=== PATIENT | female | born 1975 | race African-American/Black ===

== ENCOUNTER 2017-07-03 04:35 | Emergency (ER) | payer SELFPAY ==
[2017-07-03 04:49] VITALS: BP 161/91; PULSE 112; RESP 16; TEMP 98; O2SAT 99
[2017-07-03 05:00] VITALS: PULSE 114; RESP 16; O2SAT 100
[2017-07-03] MEDS ORDERED: SODIUM CHLOR 0.9% 1000 ML INJ 1,000 ML IV ONE ×2 (05:00→06:15)
[2017-07-03] MEDS ORDERED: SODIUM CHLORIDE 0.9% FLUSH 10 ML FLUSH IV FLUSH PRN (05:00)
[2017-07-03 05:30] LABS: AUTOMATED NEUTROPHIL # 9.4 TH/MM3 (1.8-7.7); BASOPHIL % 0.3 % (0.0-2.0); EOSINOPHIL # 0.1 TH/MM3 (0-0.4); EOSINOPHIL % 0.5 % (0.0-4.0); HEMATOCRIT 33.5 % (35.0-46.0); HEMOGLOBIN 10.3 GM/DL (11.6-15.3); LYMPH % 33.3 % (9.0-44.0); LYMPHOCYTE # 5.4 TH/MM3 (1.0-4.8); MEAN CELL VOLUME 71.6 FL (80.0-100.0); MEAN CORPUSCULAR HEMOGLOBIN 22.1 PG (27.0-34.0); MEAN CORPUSCULAR HGB CONC 30.8 % (32.0-36.0); MEAN PLATELET VOLUME 7.1 FL (7.0-11.0); MONOCYTE # 1.3 TH/MM3 (0-0.9); NEUT % 57.9 % (16.0-70.0); PLATELET COUNT 413 TH/MM3 (150-450); RED BLOOD COUNT 4.68 MIL/MM3 (4.00-5.30); RED CELL DISTRIBUTION WIDTH 20.8 % (11.6-17.2); WHITE BLOOD COUNT 16.2 TH/MM3 (4.0-11.0)
--- NOTE | 2017-07-03 05:36 | PD ---
HPI Chief Complaint: Allergic/Adverse Reaction Time Seen by Provider: 04:56 Travel History International Travel<30 days: No Contact w/Intl Traveler<30days: No Traveled to known affect area: No History of Present Illness HPI 41-year-old female brought in by ambulance for evaluation of left face, cheek, and tongue swelling. The patient reported to EMS that she has had similar symptoms one time in the past and was told that she had angioedema. Her symptoms woke her up from sleep this morning. EMS provided 0.3 mg of IM epinephrine, 125 mg of IV Solu-Medrol, and 25 mg of IV Benadryl prior to arrival. On arrival the patient is awake and alert. She states she is nervous. She is complaining of pain to her left face. She feels short of breath, but believes that this may be from anxiety. She does not feel that her throat is closing. She is able to swallow and tolerate her secretions. She denies any new medications or any known new exposures. She reports similar symptoms when exposed to shellfish in the past. [facility] Past Medical History Medical History: Denies Significant Hx Immunizations Current: No ?: Not Past Surgical History Surgical History: No Previous Surgery Social History Alcohol Use: Yes Tobacco Use: No Substance Use: No Allergies-Medications (Allergen,Severity, Reaction): Coded Allergies: iodine (Verified Allergy, Unknown, 07/03/17) shellfish derived (Verified Allergy, Unknown, 07/03/17) Reported Meds & Prescriptions Reported Meds & Active Scripts Active No Active Prescriptions or Reported Medications Review of Systems Except as stated in HPI: all other systems reviewed are Neg Physical Exam Narrative GENERAL: Well-developed, well-nourished, awake, alert, appears anxious, no apparent distress. SKIN: Focused skin assessment warm/dry. HEAD: Atraumatic. Normocephalic. Mild left facial swelling. EYES: Pupils equal and round. No scleral icterus. No injection or drainage. ENT: Mucous membranes pink and moist. Poor dentition. Mild left face, left upper and lower lip swelling. No fluctuance or induration. No drooling or stridor. No trismus. Normal pharynx. Normal phonation. NECK: Trachea midline. No JVD. CARDIOVASCULAR: Regular rate and rhythm. RESPIRATORY: No accessory muscle use. Clear to auscultation. Breath sounds equal bilaterally. GASTROINTESTINAL: Abdomen soft, non-tender, nondistended. MUSCULOSKELETAL: No obvious deformities. No clubbing. No cyanosis. No edema. NEUROLOGICAL: Awake and alert. No obvious cranial nerve deficits. Motor grossly within normal limits. Normal speech. PSYCHIATRIC: Appropriate mood and affect; insight and judgment normal. Data Data Last Documented VS Vital Signs Date Time Temp Pulse Resp B/P (MAP) Pulse Ox O2 Delivery O2 Flow Rate FiO2 07/03/17 05:00 114 16 100 Nasal Cannula 4.00 07/03/17 04:49 98.0 161/91 (114) Orders Orders Complete Blood Count With Diff (07/03/17 04:56) Comprehensive Metabolic Panel (07/03/17 04:56) Prothrombin Time / Inr (Pt) (07/03/17 04:56) Act Partial Throm Time (Ptt) (07/03/17 04:56) Iv Access Insert/Monitor (07/03/17 04:56) Ecg Monitoring (07/03/17 04:56) Oximetry (07/03/17 04:56) Sodium Chloride 0.9% Flush (Ns Flush) (07/03/17 05:00) Ed Urine Pregnancytest Poc (07/03/17 04:56) Ct Soft Tiss Neck W/O Iv Cont (07/03/17 ) Sodium Chlor 0.9% 1000 Ml Inj (Ns 1000 M (07/03/17 05:00) Lorazepam Inj (Ativan Inj) (07/03/17 06:15) Sodium Chlor 0.9% 1000 Ml Inj (Ns 1000 M (07/03/17 06:15) Labs Laboratory Tests Test 07/03/17 05:10 White Blood Count 16.2 TH/MM3 Red Blood Count 4.68 MIL/MM3 Hemoglobin 10.3 GM/DL Hematocrit 33.5 % Mean Corpuscular Volume 71.6 FL Mean Corpuscular Hemoglobin 22.1 PG Mean Corpuscular Hemoglobin Concent 30.8 % Red Cell Distribution Width 20.8 % Platelet Count 413 TH/MM3 Mean Platelet Volume 7.1 FL Neutrophils (%) (Auto) 57.9 % Lymphocytes (%) (Auto) 33.3 % Monocytes (%) (Auto) 8.0 % Eosinophils (%) (Auto) 0.5 % Basophils (%) (Auto) 0.3 % Neutrophils # (Auto) 9.4 TH/MM3 Lymphocytes # (Auto) 5.4 TH/MM3 Monocytes # (Auto) 1.3 TH/MM3 Eosinophils # (Auto) 0.1 TH/MM3 Basophils # (Auto) 0.0 TH/MM3 CBC Comment AUTO DIFF Prothrombin Time 10.5 SEC Prothromb Time International Ratio 1.0 RATIO Activated Partial Thromboplast Time 24.1 SEC Blood Urea Nitrogen 3 MG/DL Creatinine 0.67 MG/DL Random Glucose 120 MG/DL Total Protein 8.7 GM/DL Albumin 3.3 GM/DL Calcium Level 8.4 MG/DL Alkaline Phosphatase 75 U/L Aspartate Amino Transf (AST/SGOT) 94 U/L Alanine Aminotransferase (ALT/SGPT) 88 U/L Total Bilirubin 0.2 MG/DL Sodium Level 138 MEQ/L Potassium Level 3.0 MEQ/L Chloride Level 107 MEQ/L Carbon Dioxide Level 18.0 MEQ/L Anion Gap 13 MEQ/L Estimat Glomerular Filtration Rate 96 ML/MIN [facility] Medical Decision Making Medical Screen Exam Complete: Yes Emergency Medical Condition: Yes Differential Diagnosis Dental infection, allergic reaction, angioedema Narrative Course Initial vital signs show heart rate 112, blood pressure 161/91, pulse ox 99% on room air, oral temperature 98F. CBC: WBC 16.2, hemoglobin 10.3, hematocrit 33.5, platelets 413. CMP is remarkable for potassium 3, bicarb 18, AST 94, ALT 88. Patient admits to drinking alcohol daily. She consumes about 3-6 beers daily. She denies illicit drug use. At approximately 7:00am at the end of my shift the patient was signed out to Dr Reese to follow up with CT soft tissue neck and dispo. Scripts No Active Prescriptions or Reported Meds Chong Coleman MD Jul 03, 2017 05:36
[2017-07-03 05:49] LABS: PROTHROMBIN TIME - PATIENT 10.5 SEC (9.8-11.6)
[2017-07-03 05:59] LABS: ALBUMIN 3.3 GM/DL (3.4-5.0); ALT (GPT) 88 U/L (10-53); AST (GOT) 94 U/L (15-37); BLOOD UREA NITROGEN 3 MG/DL (7-18); CALCIUM 8.4 MG/DL (8.5-10.1); CHLORIDE 107 MEQ/L (98-107); CREATININE 0.67 MG/DL (0.50-1.00); GLOMERULAR FILTRATION RATE 96 ML/MIN (>89); GLUCOSE,RANDOM 120 MG/DL (74-106); SODIUM (NA) 138 MEQ/L (136-145)
[2017-07-03 06:01] LABS: ALKALINE PHOSPHATASE 75 U/L (45-117); TOTAL BILIRUBIN ADULT 0.2 MG/DL (0.2-1.0); TOTAL PROTEIN 8.7 GM/DL (6.4-8.2)
[2017-07-03] MEDS ORDERED: LORazepam 2 MG/ML VIAL IV PUSH ONE (06:15)
--- NOTE | 2017-07-03 06:59 | RADRPT ---
EXAM DATE/TIME: 07/03/2017 06:39 [facility] COMPARISON: No previous studies available for comparison. INDICATIONS : Difficulty breathing. Possible airway edema. RADIATION DOSE: 23.09 CTDIvol (mGy) MEDICAL HISTORY : None SURGICAL HISTORY : None. ENCOUNTER: Initial ACUITY: 1 day PAIN SCORE: 5/10 LOCATION: neck TECHNIQUE: Volumetric scanning of the neck was performed. Using automated exposure control and adjustment of th e mA and/or kV according to patient size, radiation dose was kept as low as reasonably achievable to obtain optimal diagnostic quality images. DICOM format image data is available electronically for re view and comparison. FINDINGS: NASOPHARYNX: The nasopharyngeal airway has a normal configuration. No mucosal thickening or mass is seen. OROPHARYNX: The intrinsic muscles of the tongue are symmetric. The tonsillar pillars demonstrate prominence bila terally which focally mildly narrows the airway with the airway measuring 1.0 x 1.4 centimeters. Ther e is no evidence of abscess. No discrete mass.. The prevertebral soft tissues are not thickened. LARYNX: The supraglottic, glottic, and infraglottic structures are intact. PARAPHARYNGEAL: The parapharyngeal space is intact. SALIVARY GLANDS: The parotid and submandibular glands are intact. LYMPH NODES: No enlarged or necrotic-appearing nodes. THYROID: Homogeneous enhancement without evidence of nodule. BONES: Unremarkable. CONCLUSION: There is mild focal narrowing of the oropharyngeal airway secondary to bilateral tons illar hypertrophy. No evidence of abscess or mass. Katherin Nickerson MD on July 03, 2017 at 6:53 Board Certified Radiologist. This report was verified electronically.
[2017-07-03 07:09] LABS: LYMPHOCYTES 41 % (9-44); MONOCYTES 5 % (0-8); NEUTROPHIL # MANUAL DIFF 8.7 TH/MM3 (1.8-7.7); POLYS (SEG NEUTROPHILS) 54 % (16-70)
[2017-07-03 07:10] VITALS: BP 131/72; PULSE 108; RESP 16; TEMP 98.1; O2SAT 99
[2017-07-03 07:10] LABS: OVALOCYTES 1+ (NORMAL)
[2017-07-03] MEDS ORDERED: CLAR10CA3 PO (07:43)
[2017-07-03] MEDS ORDERED: PRED-503 PO (07:43)
[2017-07-03] MEDS ORDERED: AUGM875T3 PO (07:43)
--- NOTE | 2017-07-03 07:44 | PD ---
Data Data Last Documented VS Vital Signs Date Time Temp Pulse Resp B/P (MAP) Pulse Ox O2 Delivery O2 Flow Rate FiO2 07/03/17 07:10 98.1 108 16 131/72 (91) 99 Nasal Cannula 2.00 Orders Orders Complete Blood Count With Diff (07/03/17 04:56) Comprehensive Metabolic Panel (07/03/17 04:56) Prothrombin Time / Inr (Pt) (07/03/17 04:56) Act Partial Throm Time (Ptt) (07/03/17 04:56) Iv Access Insert/Monitor (07/03/17 04:56) Ecg Monitoring (07/03/17 04:56) Oximetry (07/03/17 04:56) Sodium Chloride 0.9% Flush (Ns Flush) (07/03/17 05:00) Ed Urine Pregnancytest Poc (07/03/17 04:56) Ct Soft Tiss Neck W/O Iv Cont (07/03/17 ) Sodium Chlor 0.9% 1000 Ml Inj (Ns 1000 M (07/03/17 05:00) Lorazepam Inj (Ativan Inj) (07/03/17 06:15) Sodium Chlor 0.9% 1000 Ml Inj (Ns 1000 M (07/03/17 06:15) Labs Laboratory Tests Test 07/03/17 05:10 White Blood Count 16.2 TH/MM3 Red Blood Count 4.68 MIL/MM3 Hemoglobin 10.3 GM/DL Hematocrit 33.5 % Mean Corpuscular Volume 71.6 FL Mean Corpuscular Hemoglobin 22.1 PG Mean Corpuscular Hemoglobin Concent 30.8 % Red Cell Distribution Width 20.8 % Platelet Count 413 TH/MM3 Mean Platelet Volume 7.1 FL Neutrophils (%) (Auto) 57.9 % Lymphocytes (%) (Auto) 33.3 % Monocytes (%) (Auto) 8.0 % Eosinophils (%) (Auto) 0.5 % Basophils (%) (Auto) 0.3 % Neutrophils # (Auto) 9.4 TH/MM3 Lymphocytes # (Auto) 5.4 TH/MM3 Monocytes # (Auto) 1.3 TH/MM3 Eosinophils # (Auto) 0.1 TH/MM3 Basophils # (Auto) 0.0 TH/MM3 CBC Comment AUTO DIFF Differential Total Cells Counted 100 Neutrophils % (Manual) 54 % Lymphocytes % 41 % Monocytes % 5 % Neutrophils # (Manual) 8.7 TH/MM3 Differential Comment FINAL DIFF MANUAL Platelet Estimate NORMAL Platelet Morphology Comment NORMAL Ovalocytes 1+ Prothrombin Time 10.5 SEC Prothromb Time International Ratio 1.0 RATIO Activated Partial Thromboplast Time 24.1 SEC Blood Urea Nitrogen 3 MG/DL Creatinine 0.67 MG/DL Random Glucose 120 MG/DL Total Protein 8.7 GM/DL Albumin 3.3 GM/DL Calcium Level 8.4 MG/DL Alkaline Phosphatase 75 U/L Aspartate Amino Transf (AST/SGOT) 94 U/L Alanine Aminotransferase (ALT/SGPT) 88 U/L Total Bilirubin 0.2 MG/DL Sodium Level 138 MEQ/L Potassium Level 3.0 MEQ/L Chloride Level 107 MEQ/L Carbon Dioxide Level 18.0 MEQ/L Anion Gap 13 MEQ/L Estimat Glomerular Filtration Rate 96 ML/MIN MDM Supervised Visit with BARNEY: No Interpretation(s) LABS: CBC remarkable for leukocytosis, mild anemia CMP remarkable for mildly elevated AST ALT, glucose 120, wide gamma gap Coags unremarkable CT soft tissue neck: Bilateral tonsillar hypertrophy, otherwise no evidence of abscess or mass. Narrative Course Is a 40-year-old woman who has unilateral facial swelling, she had similar symptoms in the past, cord this represents angioedema or odontogenic infection. Swelling seems to be about the mandible and jaw, more consistent with odontogenic infection. This is Dr. Coleman's impression as well. Patient looks well however. She still having some painful swallowing. She received steroids in route with EMS. We will give her a dose of Unasyn, continue steroids and antihistamines and antibiotics, outpatient dental follow-up. Return for any worsening symptoms. Diagnosis Primary Impression: Facial swelling Additional Impression: Odontogenic infection of jaw Additional Instruction: Take antibiotics as prescribed. Take Deltasone as prescribed. Return to the emergency department for any worsening trouble swallowing, or any trouble breathing. Follow-up with your primary doctor and dentist in the next 1-2 weeks. Med/Other Pt SpecificInfo: Prescription(s) given Scripts Loratadine (Claritin) 10 Mg Cap 10 MG PO DAILY for Allergy Management for 5 Days, #5 CAP 0 Refills Prov: Thomas Reese MD 07/03/17 Prednisone (Deltasone) 20 Mg Tab 20 MG PO BID for 5 Days, #10 TAB 0 Refills Prov: Thomas Reese MD 07/03/17 Amoxicillin-Clavulanate (Augmentin) 875-125 Mg Tab 1 TAB PO BID for Infection, #10 TAB 0 Refills Prov: Thomas Reese MD 07/03/17 Disposition: 01 DISCHARGE HOME Condition: Stable Thomas Reese MD Jul 03, 2017 07:43
[2017-07-03] MEDS ORDERED: AMPICILLIN-SULBACTAM INJ 3 GM in SODIUM CHLORIDE 0.9% INJ 100 ML IV ONE (07:45)
[2017-07-03 08:40] VITALS: BP_SYST 120; BP_DIAS 77; BP_DIAS 81; PULSE 89; RESP 16; TEMP 97.8; TEMP 98.1; O2SAT 98
== END 2017-07-03 08:40 | disposition home or self-care (01) ==
LOC: NEPE 04:35
DX: M27.2 Inflammatory conditions of jaws (principal); J35.1 Hypertrophy of tonsils
CPT/HCPCS: 70490; 80053; 84703; 85007; 85027; 85610; 85730; 96361; 96365; 96375; 99284; J0295; J2060; J7030

== ENCOUNTER 2017-07-28 08:02 | Emergency (ER) | payer SELFPAY ==
[~2017-07-28] VITALS: Ht 167.6 cm; Wt 96.0 kg
[~2017-07-28 08:02] MED LIST: AUGM875T3 PO; CLAR10CA3 PO; PRED-503 PO
[2017-07-28 08:04] VITALS: BP 178/91; PULSE 114; RESP 16; TEMP 98.4; O2SAT 99
[2017-07-28] MEDS ORDERED: SODIUM CHLOR 0.9% 1000 ML INJ 1,000 ML IV ONE (08:25)
[2017-07-28 08:33] VITALS: BP 123/76; PULSE 107; RESP 18; TEMP 98.4; O2SAT 98
--- NOTE | 2017-07-28 08:45 | PD ---
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 The patient has a history of regular menstrual cycles, last menstrual cycle started on July 14. She usually has a 5 day cycle, however, she has had vaginal bleeding since July 14. She states that approximately 5-6 days after the start of her menstrual cycle she started developing heavier vaginal bleeding with large red blood clots. She denies abdominal pain or cramping. She does not currently have a amr physician, denies any known history of uterine fibroids. She is with 1 spontaneous . She denies any sexual activity or trauma to the pelvic area. She does complain of generalized weakness but denies any lightheadedness, dizziness , orthostatic changes, chest pain, or exertional shortness of breath. PFSH Past Medical History Medical History: Denies Significant Hx Immunizations Current: No Tetanus Vaccination: Unknown Influenza Vaccination: No ?: Not LMP: 07/14/17 : 6 Para: 5 Miscarriage: 1 Tubal Ligation: Yes Past Surgical History Gynecologic Surgery: Yes Social History Alcohol Use: Yes (occ) Tobacco Use: No Substance Use: No Allergies-Medications (Allergen,Severity, Reaction): Coded Allergies: iodine (Verified Allergy, Unknown, 07/28/17) shellfish derived (Verified Allergy, Unknown, 07/28/17) Reported Meds & Prescriptions Reported Meds & Active Scripts Active No Active Prescriptions or Reported Medications Review of Systems Except as stated in HPI: all other systems reviewed are Neg HENT: No: Lightheadedness Cardiovascular: No: Chest Pain or Discomfort, Dyspnea on exertion Gastrointestinal: No: Nausea, Vomiting, Abdominal Pain Genitourinary: Positive: Menorrhagia, Metorrhagia, Vaginal Bleeding, No: Dysuria, Discharge Musculoskeletal: Positive: Weakness Neurologic: Positive: Weakness, No: Dizziness Physical Exam Narrative GENERAL: Awake, alert, pleasant 41-year-old female who appears her stated age and is in no acute respiratory distress. SKIN: Focused skin assessment warm/dry. HEAD: Atraumatic. Normocephalic. EYES: Pupils equal and round. No scleral icterus. No injection or drainage. No significant pallor noted. ENT: No nasal bleeding or discharge. Mucous membranes pink and moist. NECK: Trachea midline. No JVD. CARDIOVASCULAR: Regular, tachycardic with a heart rate of 115. RESPIRATORY: No accessory muscle use. Clear to auscultation. Breath sounds equal bilaterally. GASTROINTESTINAL: Abdomen soft, non-tender, nondistended. No rebound tenderness. No suprapubic tenderness. Back: No CVA tenderness. Pelvic: The exam was performed in the presence of a female nurse. MUSCULOSKELETAL: No obvious deformities. No clubbing. No cyanosis. No edema. NEUROLOGICAL: Awake and alert. No obvious cranial nerve deficits. Motor grossly within normal limits. Normal speech. PSYCHIATRIC: Appropriate mood and affect; insight and judgment normal. Data Data Last Documented VS Vital Signs Date Time Temp Pulse Resp B/P (MAP) Pulse Ox O2 Delivery O2 Flow Rate FiO2 07/28/17 08:33 98.4 107 18 123/76 (92) 98 Room Air Orders Orders Complete Blood Count With Diff (07/28/17 08:25) Basic Metabolic Panel (Bmp) (07/28/17 08:25) Type And Screen (07/28/17 08:25) Us Pelvis Comp Airplane Pilot Photogrammetry/Non-Preg (07/28/17 ) Iv Access Insert/Monitor (07/28/17 08:25) Sodium Chlor 0.9% 1000 Ml Inj (Ns 1000 M (07/28/17 08:25) Ed Urine Pregnancytest Poc (07/28/17 08:25) Labs Laboratory Tests Test 07/28/17 08:40 White Blood Count 6.0 TH/MM3 Red Blood Count 4.30 MIL/MM3 Hemoglobin 9.9 GM/DL Hematocrit 30.9 % Mean Corpuscular Volume 71.7 FL Mean Corpuscular Hemoglobin 23.0 PG Mean Corpuscular Hemoglobin Concent 32.0 % Red Cell Distribution Width 20.1 % Platelet Count 435 TH/MM3 Mean Platelet Volume 6.8 FL Neutrophils (%) (Auto) 65.9 % Lymphocytes (%) (Auto) 22.6 % Monocytes (%) (Auto) 9.4 % Eosinophils (%) (Auto) 1.6 % Basophils (%) (Auto) 0.5 % Neutrophils # (Auto) 3.9 TH/MM3 Lymphocytes # (Auto) 1.3 TH/MM3 Monocytes # (Auto) 0.6 TH/MM3 Eosinophils # (Auto) 0.1 TH/MM3 Basophils # (Auto) 0.0 TH/MM3 CBC Comment DIFF FINAL Differential Comment Blood Urea Nitrogen 7 MG/DL Creatinine 0.69 MG/DL Random Glucose 137 MG/DL Calcium Level 9.2 MG/DL Sodium Level 138 MEQ/L Potassium Level 3.5 MEQ/L Chloride Level 106 MEQ/L Carbon Dioxide Level 20.6 MEQ/L Anion Gap 11 MEQ/L Estimat Glomerular Filtration Rate 112 ML/MIN MDM Medical Decision Making Medical Screen Exam Complete: Yes Emergency Medical Condition: Yes Medical Record Reviewed: Yes Interpretation(s) Last Impressions Pelvis Ultrasound 07/28/17 0000 Signed Impressions: Service Date/Time: July 08:31 - CONCLUSION: 1. There are 2 lesions in the myometrium, one is hyperechoic and one is isoechoic. 2. No evidence of free fluid. Parth Gomez MD Laboratory Tests Test 07/28/17 08:40 White Blood Count 6.0 TH/MM3 Red Blood Count 4.30 MIL/MM3 Hemoglobin 9.9 GM/DL Hematocrit 30.9 % Mean Corpuscular Volume 71.7 FL Mean Corpuscular Hemoglobin 23.0 PG Mean Corpuscular Hemoglobin Concent 32.0 % Red Cell Distribution Width 20.1 % Platelet Count 435 TH/MM3 Mean Platelet Volume 6.8 FL Neutrophils (%) (Auto) 65.9 % Lymphocytes (%) (Auto) 22.6 % Monocytes (%) (Auto) 9.4 % Eosinophils (%) (Auto) 1.6 % Basophils (%) (Auto) 0.5 % Neutrophils # (Auto) 3.9 TH/MM3 Lymphocytes # (Auto) 1.3 TH/MM3 Monocytes # (Auto) 0.6 TH/MM3 Eosinophils # (Auto) 0.1 TH/MM3 Basophils # (Auto) 0.0 TH/MM3 CBC Comment DIFF FINAL Differential Comment Blood Urea Nitrogen 7 MG/DL Creatinine 0.69 MG/DL Random Glucose 137 MG/DL Calcium Level 9.2 MG/DL Sodium Level 138 MEQ/L Potassium Level 3.5 MEQ/L Chloride Level 106 MEQ/L Carbon Dioxide Level 20.6 MEQ/L Anion Gap 11 MEQ/L Estimat Glomerular Filtration Rate 112 ML/MIN Differential Diagnosis Differential diagnosis includes abnormal uterine bleeding, uterine fibroid, symptomatic anemia, vaginal laceration, UTI, ectopic , , threatened AB. Narrative Course IV was established, labs are drawn and sent, and the patient was placed on cardiac telemetry monitoring and continuous pulse oximetry monitoring. Ultrasound was ordered to evaluate for possible uterine fibroid. A pelvic exam was completed in the presence of a female nurse. CBC was sent to lab and the patient was administered 1 L of IV fluids. The patient's hemoglobin is 9.9, previous hemoglobin was 10.6. Ultrasound does reveal a hyperechoic and anechoic area in the myometrium, may be uterine fibroids. Pelvic exam was performed, there was one blood clot in the vaginal vault, cervix is less than a centimeter in diameter, small amount of blood at the cervical loss. No visible vaginal wall lacerations. The patient is stable for outpatient follow-up, will be placed on high-dose NSAIDs and advised to follow-up with gynecology. Diagnosis Primary Impression: Abnormal uterine and vaginal bleeding, unspecified Referrals: [facility] as needed Patient Instructions: General Instructions Additional Instructions: Please provide the patient a copy of her ultrasound results and lab results at discharge. Follow-up with gynecology. Return if symptoms worsen or progress. Medications as directed. Med/Other Pt SpecificInfo: Prescription(s) given Scripts Ibuprofen (Ibuprofen) 600 Mg Tab 600 MG PO Q6H Y for Pain/Inflammation, #20 TAB 0 Refills Prov: Adi Andres MD 07/28/17 Disposition: DISCHARGE HOME Condition: Stable Adi Andres MD July 28, 2017 08:45
[2017-07-28 08:50] LABS: AUTOMATED NEUTROPHIL # 3.9 TH/MM3 (1.8-7.7); BASOPHIL % 0.5 % (0.0-2.0); EOSINOPHIL # 0.1 TH/MM3 (0-0.4); EOSINOPHIL % 1.6 % (0.0-4.0); HEMATOCRIT 30.9 % (35.0-46.0); HEMOGLOBIN 9.9 GM/DL (11.6-15.3); LYMPH % 22.6 % (9.0-44.0); LYMPHOCYTE # 1.3 TH/MM3 (1.0-4.8); MEAN CELL VOLUME 71.7 FL (80.0-100.0); MEAN PLATELET VOLUME 6.8 FL (7.0-11.0); MONO % 9.4 % (0.0-8.0); MONOCYTE # 0.6 TH/MM3 (0-0.9); NEUT % 65.9 % (16.0-70.0); PLATELET COUNT 435 TH/MM3 (150-450); RED CELL DISTRIBUTION WIDTH 20.1 % (11.6-17.2)
[2017-07-28 09:06] LABS: BICARBONATE 20.6 MEQ/L (21.0-32.0); CALCIUM 9.2 MG/DL (8.5-10.1); CREATININE 0.69 MG/DL (0.50-1.00)
--- NOTE | 2017-07-28 09:20 | RADRPT ---
EXAM DATE/TIME: 07/28/2017 08:31 [facility] COMPARISON: No previous studies available for comparison. INDICATIONS : Pelvic bleeding. MEDICAL HISTORY : Heavy uterine bleeding. Fibroids. SURGICAL HISTORY : Tubal ligation. ENCOUNTER: Initial ACUITY: 1 week PAIN SCORE: 0/10 LOCATION: Bilateral pelvis MEASUREMENTS: UTERUS: 10.1 x 6.3 x 7.1 cm ENDOMETRIAL STRIPE: 15 mm RIGHT OVARY: Non visualized LEFT OVARY: 3.4 x 3.7 x 2.9 cm FINDINGS: UTERUS: Focal hyperechogenic shadowing lesion in the posterior fundus measuring 3.6 x 2.6 x 2.4 cm. There is a well-defined isoechoic rounded area in the left anterior fundus measuring 2.1 x 2.4 x 1.9 cm. No increased flow seen by color Doppler in either lesion. Homogeneous echotexture to the endometrial st ripe. RIGHT OVARY: Nonvisualized. No fluid in the right adnexa. LEFT OVARY: Homogeneous echotexture. MISCELLANEOUS: No free fluid. CONCLUSION: 1. There are 2 lesions in the myometrium, one is hyperechoic and one is isoechoic. 2. No evidence of free fluid. Parth Gomez MD on July 28, 2017 at 9:16 Board Certified Radiologist. This report was verified electronically.
[2017-07-28] MEDS ORDERED: IBUP-232 PO (10:58)
[2017-07-28 11:14] VITALS: BP 135/78
== END 2017-07-28 11:14 | disposition home or self-care (01) ==
LOC: NEPE 08:02
DX: N93.9 Abnormal uterine and vaginal bleeding, unspecified (principal)
CPT/HCPCS: 76856; 80048; 84703; 85025; 86850; 86900; 86901; 96360; 99284; J7030